=== PATIENT | female | born 1995 | race Caucasian/White ===

== ENCOUNTER 2018-07-03 19:20 | Emergency (ER) | payer OTHER ==
--- NOTE | 2018-07-03 20:49 | ER Document Report ---
ED Medical Screen (RME) - General TRAVEL OUTSIDE OF THE [place] IN LAST 30 DAYS: No <JOVANI CANELA - Last Filed: 07/03/18 20:47> <ARSENIO HUTCHISON - Last Filed: 07/04/18 00:03> - General Chief Complaint: Abdominal Pain Stated Complaint: ABDOMINAL PAIN Time Seen by Provider: 07/03/18 20:43 Notes: , ~16 weeks IUP per ultrasound per patient presents with multiple complaints including a month and a half of nonbloody diarrhea approximately 6 times a day. She states she has not taken anything for this. She also complains of diffuse of abdominal pain. No recent travel or camping. She also has been having a headache for the last 2 days denies any recent traumas or falls. Has been nauseous but no vomiting. I have greeted and performed a rapid initial assessment of this patient. A comprehensive ED assessment and evaluation of the patient, analysis of test results and completion of the medical decision making process will be conducted by additional ED providers. PHYSICAL EXAMINATION: GENERAL: Well-appearing, well-nourished and in no acute distress. HEAD: Atraumatic, normocephalic. EYES: Pupils equal round extraocular movements intact, conjunctiva are normal. ENT: Nares patent NECK: Normal range of motion LUNGS: No respiratory distress Musculoskeletal: Normal range of motion NEUROLOGICAL: Normal speech, normal gait. PSYCH: Normal mood, normal affect. SKIN: Warm, Dry, normal turgor, no rashes or lesions noted. (JOVANI CANELA) - Vital signs Vitals: Temp Pulse Resp BP Pulse Ox 98.3 F 84 17 117/64 98 07/03/18 19:31 07/03/18 19:31 07/03/18 19:31 07/03/18 19:31 07/03/18 19:31 Course - Laboratory Result Diagrams: 07/03/18 21:00 07/03/18 21:00 <ARSENIO HUTCHISON - Last Filed: 07/04/18 00:03> - Vital Signs Vital signs: Temp Pulse Resp BP Pulse Ox 98.3 F 84 17 117/64 98 07/03/18 19:31 07/03/18 19:31 07/03/18 19:31 07/03/18 19:31 07/03/18 19:31 - Laboratory Laboratory results interpreted by me: 07/03/18 07/03/18 21:00 21:00 Sodium 136.4 L Carbon Dioxide 21 L Creatinine 0.46 L Urine Ketones TRACE H
[2018-07-03] MEDS ORDERED: PROMETHAZINE HCL 25 MG TABLET PO ONE (20:50)
[2018-07-03 21:09] LABS: ABSOLUTE EOSINOPHILS # (AUTO) 0.1 10^3/uL (0.0-0.6); ABSOLUTE LYMPHOCYTES (AUTO) 1.9 10^3/uL (0.5-4.7); ABSOLUTE MONOCYTES (AUTO) 0.5 10^3/uL (0.1-1.4); ABSOLUTE NEUT (AUTO) 6.5 10^3/uL (1.7-8.2); BASOPHILS % (AUTO) 0.2 % (0-2); EOSINOPHILS % (AUTO) 1.3 % (0-6); HEMATOCRIT 38.8 % (36.0-47.0); HEMOGLOBIN 13.6 g/dL (12.0-15.5); LYMPHOCYTES % (AUTO) 20.7 % (13-45); MEAN CORPUSCULAR HEMOGLOBIN 32.3 pg (27.0-33.4); MEAN CORPUSCULAR HGB CONC 35.1 g/dL (32.0-36.0); MEAN CORPUSCULAR VOLUME 92 fl (80-97); MONOCYTES % (AUTO) 5.8 % (3-13); PLATELET COUNT 230 10^3/uL (150-450); RED BLOOD COUNT 4.22 10^6/uL (3.72-5.28); RED CELL DISTRIBUTION WIDTH 12.6 % (11.5-14.0); TOTAL CELLS COUNTED % (AUTO) 100 %
[2018-07-03 21:13] LABS: APPEARANCE,URINE SLIGHTLY-CLOUDY; BILIRUBIN,URINE NEGATIVE (NEGATIVE); COLOR,URINE YELLOW; GLUCOSE, URINE NEGATIVE (NEGATIVE); KETONES,URINE TRACE mg/dL (NEGATIVE); LEUKOCYTE ESTERASE,URINE NEGATIVE (NEGATIVE); NITRITE,URINE NEGATIVE (NEGATIVE); PROTEIN,URINE NEGATIVE (NEGATIVE); URINE SPECIFIC GRAVITY 1.025; UROBILINOGEN,URINE NEGATIVE mg/dL (<2.0)
[2018-07-03 21:23] LABS: ALANINE AMINOTRANSFERASE 24 U/L (9-52); ALBUMIN 4.1 g/dL (3.5-5.0); ALKALINE PHOSPHATASE 44 U/L (38-126); ANION GAP 12 (5-19); ASPARTATE AMINO TRANSFERASE 17 U/L (14-36); BILIRUBIN,DIRECT 0.2 mg/dL (0.0-0.4); BILIRUBIN,TOTAL 0.3 mg/dL (0.2-1.3); BLOOD UREA NITROGEN 9 mg/dL (7-20); CALCIUM 9.1 mg/dL (8.4-10.2); CARBON DIOXIDE 21 mmol/L (22-30); CHLORIDE 103 mmol/L (98-107); GLUCOSE 83 mg/dL (75-110); SODIUM 136.4 mmol/L (137-145); TOTAL PROTEIN 7.6 g/dL (6.3-8.2)
[2018-07-03] MEDS ORDERED: DIPHENHYDRAMINE HCL 50 MG/ML VIAL IV ONE (21:47)
[2018-07-03] MEDS ORDERED: DEXTROSE 5%-LACTATED RINGERS 1,000 ML IV ONE (21:47)
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
[2018-07-04 00:55] VITALS: BP 103/61
== END 2018-07-04 00:55 | disposition home or self-care (01) ==
LOC: ER 19:20
DX: O26.892 Other specified pregnancy related conditions, second trimester (principal); R19.7 Diarrhea, unspecified; R11.0 Nausea; R10.84 Generalized abdominal pain; R42 Dizziness and giddiness; O99.352 Diseases of the nervous system complicating pregnancy, second trimester; G43.909 Migraine, unspecified, not intractable, without status migrainosus; Z3A.16 16 weeks gestation of pregnancy; Z79.899 Other long term (current) drug therapy; Z87.442 Personal history of urinary calculi
CPT/HCPCS: 99284; 96361; 96374; 36415; 83735; 85025; 80053; 81001; J1200

== ENCOUNTER 2018-11-20 11:30 | Outpatient (CLI) | payer OTHER ==
[2018-11-20] MEDS ORDERED: RINGERS SOLUTION,LACTATED 300 ML IV ONE (12:02)
[2018-11-20] MEDS ORDERED: RINGERS SOLUTION,LACTATED 1,000 ML IV PRN (12:02)
[2018-11-20 12:26] LABS: ABSOLUTE EOSINOPHILS # (AUTO) 0.1 10^3/uL (0.0-0.6); ABSOLUTE LYMPHOCYTES (AUTO) 1.5 10^3/uL (0.5-4.7); ABSOLUTE MONOCYTES (AUTO) 0.9 10^3/uL (0.1-1.4); ABSOLUTE NEUT (AUTO) 7.8 10^3/uL (1.7-8.2); BASOPHILS % (AUTO) 0.2 % (0-2); EOSINOPHILS % (AUTO) 1.1 % (0-6); HEMATOCRIT 29.6 % (36.0-47.0); HEMOGLOBIN 10.1 g/dL (12.0-15.5); LYMPHOCYTES % (AUTO) 14.5 % (13-45); MEAN CORPUSCULAR HEMOGLOBIN 30.6 pg (27.0-33.4); MEAN CORPUSCULAR HGB CONC 34.1 g/dL (32.0-36.0); MEAN CORPUSCULAR VOLUME 90 fl (80-97); PLATELET COUNT 245 10^3/uL (150-450); RED CELL DISTRIBUTION WIDTH 12.8 % (11.5-14.0); SEGMENTED NEUTROPHILS % (AUTO) 75.2 % (42-78); TOTAL CELLS COUNTED % (AUTO) 100 %; WHITE BLOOD COUNT 10.4 10^3/uL (4.0-10.5)
[2018-11-20 12:43] LABS: AMORPHOUS SEDIMENT,URINE 1+ /HPF; APPEARANCE,URINE CLOUDY; BILIRUBIN,URINE NEGATIVE (NEGATIVE); COLOR,URINE YELLOW; GLUCOSE, URINE 50 mg/dL (NEGATIVE); KETONES,URINE NEGATIVE (NEGATIVE); LEUKOCYTE ESTERASE,URINE NEGATIVE (NEGATIVE); NITRITE,URINE NEGATIVE (NEGATIVE); PROTEIN,URINE NEGATIVE (NEGATIVE); URINE SPECIFIC GRAVITY 1.015; UROBILINOGEN,URINE NEGATIVE mg/dL (<2.0)
[2018-11-20 12:46] LABS: URINE AMPHETAMINES SCREEN NEGATIVE; URINE BARBITURATES SCREEN NEGATIVE; URINE BENZODIAZEPINES SCREEN NEGATIVE; URINE COCAINE SCREEN NEGATIVE; URINE MARIJUANA (THC) SCREEN NEGATIVE; URINE METHADONE SCREEN NEGATIVE; URINE PHENCYCLIDINE SCREEN NEGATIVE
[2018-11-20 12:51] LABS: ALANINE AMINOTRANSFERASE 15 U/L (9-52); ALBUMIN 3.2 g/dL (3.5-5.0); ALKALINE PHOSPHATASE 118 U/L (38-126); ANION GAP 10 (5-19); ASPARTATE AMINO TRANSFERASE 12 U/L (14-36); BILIRUBIN,DIRECT 0.2 mg/dL (0.0-0.4); BILIRUBIN,TOTAL 0.2 mg/dL (0.2-1.3); BLOOD UREA NITROGEN 7 mg/dL (7-20); CALCIUM 8.9 mg/dL (8.4-10.2); CARBON DIOXIDE 21 mmol/L (22-30); CHLORIDE 106 mmol/L (98-107); GLUCOSE 124 mg/dL (75-110); POTASSIUM 4.2 mmol/L (3.6-5.0); SODIUM 137.1 mmol/L (137-145); TOTAL PROTEIN 5.9 g/dL (6.3-8.2); URIC ACID 3.7 mg/dL (2.5-6.2)
[2018-11-20 13:44] LABS: UR PRO/CREAT RATIO RESULT 0.6 mg/mg (0.0-0.2); URINE CREATININE 70.4 mg/dL (16-327); URINE PROTEIN 44.4 mg/dL (<12)
--- NOTE | 2018-11-20 14:25 | RADIOLOGY REPORT (SQ) ---
EXAM DESCRIPTION: U/S PROFILE W/O STRESS COMPLETED DATE/TIME: 11/20/2018 2:15 pm REASON FOR STUDY: non reactive nst COMPARISON: None. TECHNIQUE: Limited ding-scale realtime and static images of the fetus to measure specified parameter s. LIMITATIONS: None. FINDINGS: HEART RATE: 152 beats per minute. ANAYELI: 8.1 cm. BREATHING MOVEMENT: 2 points. MOVEMENT: 2 points. POSTURE AND TONE: 2 points. QUALITATIVE ANAYELI: 2 points. OTHER: No other significant finding. IMPRESSION: BIOPHYSICAL PROFILE: 05/16. Trimester of : Third - 28 weeks to delivery COMMENT: BREATHING MOVEMENTS: 2 POINTS: PRESENT 0 POINTS: ABSENT MOTION: 2 POINTS: PRESENT 0 POINTS: ABSENT TONE: 2 POINTS: PRESENT 0 POINTS: ABSENT AMNIOTIC FLUID VOLUME: 2 POINTS: LARGEST POCKET GREATER THAN 2 CM DEPTH. 0 POINTS: NO POCKET OF 2 CM. TECHNICAL DOCUMENTATION: JOB ID: [id number] [employer]- All Rights Reserved Reading location - IP/workstation name: [email or web address]
--- NOTE | 2018-11-20 14:57 | Non Stress Test Report ---
Non Stress Test Datetime Report Generated by CPN: 11/20/2018 14:56 DEMOGRAPHIC EGA NST: 36.3 INDICATION Indication for Study: Other Indication for Study (NST) Other: LABOR CHECK MONITORING Monitor Explained: Monitor Explained; Test Explained; Patient Verbalized Understanding Time on Monitor: 11/20/2018 11:41 Time off Monitor: 11/20/2018 13:45 NST Duration: 124 NST INTERVENTIONS NST Interventions: PO Hydration; Reposition Patient Physician Notified NST: J ENRIQUEZ, CNM REVIEWED STRIP BABY A: [id number] BABY A Movement : Present Contraction Frequency : 4 FHR Baseline : 145 Accelerations : 15X15 Decelerations : None Variability : Moderate 6-25bpm NST Review: Meets Criteria for Reactive NST NST Review and Verified By : Bhumika Camp RNC NST Results: Reactive NST COMMENTS NST Comments: BPP- 10/10 NST REPORT Report Trigger: Send Report
== END 2018-11-20 14:41 | disposition home or self-care (01) ==
LOC: LC 11:30
PROVIDERS: ATTEND Obstetrics & Gynecology
PROC: 4A1HXCZ Monitoring of Products of Conception, Cardiac Rate, External Approach (ICD-10-PCS; principal; 2018-11-20)
DX: O47.03 False labor before 37 completed weeks of gestation, third trimester (principal); Z3A.36 36 weeks gestation of pregnancy
CPT/HCPCS: 36415; 59025; 76819; 80053; 80307; 81001; 82570; 83615; 84156; 84550; 85025

== ENCOUNTER 2019-01-21 17:53 | Emergency (ER) | payer OTHER ==
[2019-01-21] MEDS ORDERED: KETOROLAC TROMETHAMINE INJ/PF 30 MG/1 ML SDV IV ONE (19:03)
--- NOTE | 2019-01-21 19:07 | ER Document Report ---
ED Medical Screen (RME) - General Chief Complaint: Abdominal Pain Stated Complaint: ABDOMINAL PAIN Time Seen by Provider: 01/21/19 18:53 Mode of Arrival: Ambulatory Information source: Patient TRAVEL OUTSIDE OF THE [place] IN LAST 30 DAYS: No - HPI Patient complains to provider of: brandto pain Notes: 01/21/19 19:04 Patient is here with complaints of lower abdominal pain. Pain started yesterday. Pain is around her umbilical area. She states she is also had some nausea, vomiting, diarrhea. She reports having a fever with temperature as high as 103. She does complain of some vaginal discharge/bleeding, she states that she had a Mirena placed last week. She had her gallbladder removed in the past. She denies any dysuria. No chest pain or shortness of breath. Exam Nontoxic appearing, no distress. Tenderness to palpation in the mid low abdomen with some mild voluntary guarding on limited triage exam. No CVA tenderness. Lungs are clear. Plan CBC, CMP, lipase, urine, urine , saline lock, Toradol, CT of the abdomen and pelvis with IV contrast. An initial examination was made on the patient as part of the triage process, and it was determined a more comprehensive evaluation was necessary. Initial labs were ordered and patient was transferred to another provider in the ED who assumed care and finished evaluation and plan. - Related Data Allergies/Adverse Reactions: No Known Drug Allergies Allergy (Verified 01/21/19 17:55) Past Medical History - Social History Frequency of alcohol use: None Drug Abuse: None Renal/ Medical History: Reports: Hx Kidney Stones - left. Denies: Hx Peritoneal Dialysis Psychiatric Medical History: Reports: Hx Depression Past Surgical History: Reports: Hx Cholecystectomy, Hx Kidney (Renal Surgery) - 2x ureteral stents after stone basket retrieval Physical Exam - Vital signs Vitals: Temp Pulse Resp BP Pulse Ox 98.3 F 71 15 115/71 98 01/21/19 18:13 01/21/19 18:13 01/21/19 18:13 01/21/19 18:13 01/21/19 18:13 Course - Vital Signs Vital signs: Temp Pulse Resp BP Pulse Ox 98.3 F 71 15 115/71 98 01/21/19 18:13 01/21/19 18:13 01/21/19 18:13 01/21/19 18:13 01/21/19 18:13
[2019-01-21 19:28] LABS: ABSOLUTE EOSINOPHILS # (AUTO) 0.1 10^3/uL (0.0-0.6); ABSOLUTE LYMPHOCYTES (AUTO) 1.8 10^3/uL (0.5-4.7); ABSOLUTE MONOCYTES (AUTO) 0.3 10^3/uL (0.1-1.4); ABSOLUTE NEUT (AUTO) 1.7 10^3/uL (1.7-8.2); BASOPHILS % (AUTO) 0.6 % (0-2); EOSINOPHILS % (AUTO) 2.9 % (0-6); HEMATOCRIT 35.4 % (36.0-47.0); LYMPHOCYTES % (AUTO) 44.8 % (13-45); MEAN CORPUSCULAR HEMOGLOBIN 29.9 pg (27.0-33.4); MEAN CORPUSCULAR HGB CONC 33.9 g/dL (32.0-36.0); MEAN CORPUSCULAR VOLUME 88 fl (80-97); MONOCYTES % (AUTO) 8.7 % (3-13); PLATELET COUNT 254 10^3/uL (150-450); RED BLOOD COUNT 4.01 10^6/uL (3.72-5.28); RED CELL DISTRIBUTION WIDTH 14.5 % (11.5-14.0); TOTAL CELLS COUNTED % (AUTO) 100 %
[2019-01-21 19:32] LABS: APPEARANCE,URINE CLEAR; BILIRUBIN,URINE NEGATIVE (NEGATIVE); COLOR,URINE YELLOW; GLUCOSE, URINE NEGATIVE (NEGATIVE); KETONES,URINE NEGATIVE (NEGATIVE); LEUKOCYTE ESTERASE,URINE NEGATIVE (NEGATIVE); NITRITE,URINE NEGATIVE (NEGATIVE); PROTEIN,URINE NEGATIVE (NEGATIVE); URINE SPECIFIC GRAVITY 1.016; UROBILINOGEN,URINE NEGATIVE mg/dL (<2.0)
[2019-01-21 19:45] LABS: ALANINE AMINOTRANSFERASE 36 U/L (9-52); ALBUMIN 4.1 g/dL (3.5-5.0); ALKALINE PHOSPHATASE 60 U/L (38-126); ANION GAP 6 (5-19); ASPARTATE AMINO TRANSFERASE 20 U/L (14-36); BILIRUBIN,DIRECT 0.2 mg/dL (0.0-0.4); BILIRUBIN,TOTAL 0.4 mg/dL (0.2-1.3); BLOOD UREA NITROGEN 10 mg/dL (7-20); CALCIUM 9.7 mg/dL (8.4-10.2); CARBON DIOXIDE 27 mmol/L (22-30); CHLORIDE 107 mmol/L (98-107); GLUCOSE 84 mg/dL (75-110); LIPASE 157.1 U/L (23-300); POTASSIUM 4.4 mmol/L (3.6-5.0); SODIUM 139.9 mmol/L (137-145); TOTAL PROTEIN 7.2 g/dL (6.3-8.2)
[2019-01-21] MEDS ORDERED: HYDROMORPHONE HCL INJ/PF 2 MG/ML AMPULE IV ONE (21:04)
[2019-01-21] MEDS ORDERED: NORMAL SALINE 1000 ML 1,000 ML IV ONE (21:04)
[2019-01-21] MEDS ORDERED: METOCLOPRAMIDE HCL ORAL SOLN 10 MG/10 ML UDCUP PO ONE (21:04)
--- NOTE | 2019-01-21 21:07 | ER Document Report ---
ED General - General Chief Complaint: Abdominal Pain Stated Complaint: ABDOMINAL PAIN Time Seen by Provider: 01/21/19 18:53 Mode of Arrival: Ambulatory TRAVEL OUTSIDE OF THE [place] IN LAST 30 DAYS: No - HPI Patient complains to provider of: Periumbilical abdominal pain, fever, nausea and vomiting Onset: Yesterday Onset/Duration: Gradual, Persistent Quality of pain: Sharp Severity: Severe Pain Level: 4 Associated symptoms: Chills, Fever Exacerbated by: Movement, Other - Outpatient Relieved by: Denies Similar symptoms previously: No Recently seen / treated by doctor: No Notes: 23-year-old female coming in today with periumbilical abdominal pain and fever and nausea and vomiting. Symptoms started yesterday. Getting worse today. 2 episodes of emesis today. Denies urinary symptoms. Denies . Denies previous abdominal pathology. Denies previous surgeries. - Related Data Allergies/Adverse Reactions: No Known Drug Allergies Allergy (Verified 01/21/19 17:55) Past Medical History - General Information source: Patient - Social History Smoking Status: Never Smoker Frequency of alcohol use: None Drug Abuse: None Family History: Reviewed & Not Pertinent Patient has suicidal ideation: No Patient has homicidal ideation: No Renal/ Medical History: Reports: Hx Kidney Stones - left. Denies: Hx Peritoneal Dialysis Psychiatric Medical History: Reports: Hx Depression Past Surgical History: Reports: Hx Cholecystectomy, Hx Kidney (Renal Surgery) - 2x ureteral stents after stone basket retrieval Review of Systems - Review of Systems Notes: Constitutional: Positive for fever and chills EENT: No eye redness. No eye pain. No ear pain. No sore throat. Cardiovascular: No chest pain. No palpitations. Respiratory: No cough. No shortness of breath. No respiratory distress. Gastrointestinal: Positive for nausea and vomiting. Negative for diarrhea Genitourinary: Atraumatic. No lesions. No pain. No discharge. Musculoskeletal: Atraumatic. No swelling. No deformities. Skin: No rash or lesions. Lymphatic: No swollen lymph nodes. Neurologic: No headache. No syncope. Psychiatric: No suicidal or homicidal ideation. Physical Exam - Vital signs Vitals: Temp Pulse Resp BP Pulse Ox 98.3 F 71 15 115/71 98 01/21/19 18:13 01/21/19 18:13 01/21/19 18:13 01/21/19 18:13 01/21/19 18:13 - Notes Notes: General: Well-developed, well-nourished. In no acute distress. Non-toxic appearing. Patient appears uncomfortable Cardiac: Well-perfused. Regular rate and rhythm. No murmurs, rubs, or gallops. Pulmonary: No respiratory distress. No cyanosis. Bilateral lung fiels are clear to auscultation. Abdominal: Non-distended. Non-rigid. No guarding or rebound. Exquisite tenderness in the periumbilical region to palpation. No guarding or rebound. Normal bowel sounds in all 4 quadrants HEENT: Head is atraumatic. Conjunctivae not reddened. No tearing. PERRL. EOMI. Orbits atraumatic. No periorbital swelling or erythema. Oropharynx is without erythema, swelling, or exudates. Neck: Supple. No adenopathy. No meningismus. Dermatologic: Warm with good turgor. No rash. Atraumatic. Chest: Atraumatic. No chest wall tenderness to palpation. Musculoskeletal: Moves all extremities well. No range of motion deficits. no muscular or joint tenderness. No paraspinal muscle tenderness. no midline spinal tenderness or step-off. Genitourinary: Examination deferred Neurologic: No gross neurologic deficits. Psychiatric: Normal mood. Course - Re-evaluation Re-evalutation: 01/21/19 21:[address] scan. I would benefit from some more nausea and pain medications as well as fluids. CT results pending. 01/21/19 21:19 CT scan negative. There is some stool throughout the bowel. Labs look good. No appendicitis. Will discharge her home with nausea and pain medication. - Vital Signs Vital signs: Temp Pulse Resp BP Pulse Ox 98.3 F 71 15 115/71 98 01/21/19 18:13 01/21/19 18:13 01/21/19 18:13 01/21/19 18:13 01/21/19 18:13 - Laboratory Result Diagrams: 01/21/19 19:04 01/21/19 19:04 Laboratory results interpreted by me: 01/21/19 01/21/19 19:04 19:04 Hct 35.4 L RDW 14.5 H Urine Blood MODERATE H Discharge - Discharge Clinical Impression: Abdominal pain Qualifiers: Abdominal location: periumbilical Qualified Code(s): R10.33 - Periumbilical pain Retained feces Qualifiers: Constipation type: unspecified constipation type Qualified Code(s): K59.00 - Constipation, unspecified Condition: Good Disposition: HOME, SELF-CARE Instructions: Abdominal Pain ([facility]), Antinausea Medication ([facility]) Prescriptions: Ondansetron [Zofran Odt 4 mg Tablet] 1 tab PO Q6HP PRN #10 tab.rapdis PRN Reason: For Nausea/Vomiting Hydrocodone/Acetaminophen [[place] 5-325 mg Tablet] 1 tab PO Q6H #10 tablet Referrals: [facility] [Provider Group] - Follow up as needed
--- NOTE | 2019-01-21 21:09 | RADIOLOGY REPORT (SQ) ---
EXAM DESCRIPTION: CT ABDOMEN PELVIS WITH IV CONTRAST COMPLETED DATE/TME: 01/21/2019 19:03 CLINICAL HISTORY: 23 years, Female, lower abdo pain, fever This exam was performed according to our departmental dose-optimization program which includes automated exposure control, adjustment of the mA and/or kVp according to patient size and/or use of iterative reconstruction technique where applicable. FINDINGS: Visualized lung bases are within normal limits. Liver, spleen, pancreas, adrenal glands and kidneys are within normal limits. No hydronephrosis or biliary dilatation. Status post cholecystectomy. No dilated loops of bowel to suggest obstruction. Moderate amount stool in the colon. The appendix is normal. No free fluid or free air. Bladder is unremarkable. IUD in place. No abdominal or pelvic adenopathy. Abdominal aorta is within normal limits. IMPRESSION: No acute disease.
[2019-01-21] MEDS ORDERED: ONDANSETRON ODT 4 MG TAB (6 TAB/ER DISP) PO PRN (21:19)
[2019-01-21] MEDS ORDERED: HYDROCODONE/ACETAMINOPHEN 5-325 MG (6 TAB/ER DISP) PO PRN (21:19)
[2019-01-21 22:01] VITALS: BP 119/74
== END 2019-01-21 22:41 | disposition home or self-care (01) ==
LOC: ER 17:53
DX: R10.33 Periumbilical pain (principal); K59.00 Constipation, unspecified; Z87.442 Personal history of urinary calculi; Z90.49 Acquired absence of other specified parts of digestive tract
CPT/HCPCS: 96375; 99284; 96361; 96374; 36415; 83690; 85025; 81025; 80053; 81001; 74177; J1885; J1170; J7030

== ENCOUNTER 2019-02-16 20:25 | Emergency (ER) | payer OTHER ==
[2019-02-16] MEDS ORDERED: MORPHINE SULFATE 10 MG/ML INJ IV ONE (20:38)
[2019-02-16] MEDS ORDERED: ONDANSETRON HCL INJ/PF 4 MG/2 ML SDV IV ONE (20:38)
--- NOTE | 2019-02-16 20:40 | ER Document Report ---
ED Medical Screen (RME) - General Chief Complaint: Post Surgical Bleeding Stated Complaint: POST OP PROBLEM Time Seen by Provider: 02/16/19 20:33 Mode of Arrival: Wheelchair Information source: Patient Notes: Patient is a 23-year-old female who presents to the emergency department with complaints of umbilical abdominal pain. Patient reports she had an umbilical hernia repair done 3 days ago at the [facility] by a Dr. Diamond. Patient reports pain has increased steadily since the surgery. She states the pain feels like a sharp stabbing and twisting pain. Patient reports severe nausea without vomiting. Patient states she has had a few episodes of diarrhea. Patient reports intermittent hot and cold chills but states she has not taken her temperature so she is not sure if she has had a fever. Exam: Umbilical laparoscopic site appears intact, there is a tiny amount of dried blood on the left side of the lap site. No obvious signs of infection. I have greeted and performed a rapid initial assessment of this patient. A comprehensive ED assessment and evaluation of the patient, analysis of test results and completion of the medical decision making process will be conducted by additional ED providers. Dictation of this chart was performed using voice recognition software; therefore, there may be some unintended grammatical errors. TRAVEL OUTSIDE OF THE [place] IN LAST 30 DAYS: No - Related Data Allergies/Adverse Reactions: No Known Drug Allergies Allergy (Verified 01/21/19 17:55) Past Medical History Renal/ Medical History: Reports: Hx Kidney Stones - left. Denies: Hx Peritoneal Dialysis Psychiatric Medical History: Reports: Hx Depression Past Surgical History: Reports: Hx Cholecystectomy, Hx Kidney (Renal Surgery) - 2x ureteral stents after stone basket retrieval Physical Exam - Vital signs Vitals: Temp Pulse Resp BP Pulse Ox 98.2 F 101 H 18 116/75 97 02/16/19 20:36 02/16/19 20:36 02/16/19 20:36 02/16/19 20:36 02/16/19 20:36 Course - Vital Signs Vital signs: Temp Pulse Resp BP Pulse Ox 98.2 F 101 H 18 116/75 97 02/16/19 20:36 02/16/19 20:36 02/16/19 20:36 02/16/19 20:36 02/16/19 20:36
[2019-02-16 21:00] LABS: ABSOLUTE EOSINOPHILS # (AUTO) 0.2 10^3/uL (0.0-0.6); ABSOLUTE LYMPHOCYTES (AUTO) 1.9 10^3/uL (0.5-4.7); ABSOLUTE MONOCYTES (AUTO) 0.5 10^3/uL (0.1-1.4); ABSOLUTE NEUT (AUTO) 2.9 10^3/uL (1.7-8.2); BASOPHILS % (AUTO) 0.6 % (0-2); EOSINOPHILS % (AUTO) 3.8 % (0-6); HEMATOCRIT 38.8 % (36.0-47.0); HEMOGLOBIN 12.8 g/dL (12.0-15.5); LYMPHOCYTES % (AUTO) 34.2 % (13-45); MEAN CORPUSCULAR HEMOGLOBIN 29.4 pg (27.0-33.4); MEAN CORPUSCULAR HGB CONC 33.1 g/dL (32.0-36.0); MEAN CORPUSCULAR VOLUME 89 fl (80-97); MONOCYTES % (AUTO) 8.5 % (3-13); PLATELET COUNT 248 10^3/uL (150-450); RED BLOOD COUNT 4.37 10^6/uL (3.72-5.28); RED CELL DISTRIBUTION WIDTH 14.7 % (11.5-14.0); SEGMENTED NEUTROPHILS % (AUTO) 52.9 % (42-78); TOTAL CELLS COUNTED % (AUTO) 100 %; WHITE BLOOD COUNT 5.6 10^3/uL (4.0-10.5)
[2019-02-16 21:16] LABS: ALANINE AMINOTRANSFERASE 29 U/L (9-52); ALBUMIN 4.3 g/dL (3.5-5.0); ALKALINE PHOSPHATASE 68 U/L (38-126); ANION GAP 11 (5-19); ASPARTATE AMINO TRANSFERASE 16 U/L (14-36); BILIRUBIN,DIRECT 0.2 mg/dL (0.0-0.4); BILIRUBIN,TOTAL 0.2 mg/dL (0.2-1.3); BLOOD UREA NITROGEN 15 mg/dL (7-20); CALCIUM 9.5 mg/dL (8.4-10.2); CARBON DIOXIDE 30 mmol/L (22-30); CHLORIDE 103 mmol/L (98-107); GLUCOSE 93 mg/dL (75-110); TOTAL PROTEIN 7.4 g/dL (6.3-8.2)
--- NOTE | 2019-02-16 21:22 | ER Document Report ---
ED General - General Chief Complaint: Post Surgical Bleeding Stated Complaint: POST OP PROBLEM Time Seen by Provider: 02/16/19 20:33 Mode of Arrival: Wheelchair TRAVEL OUTSIDE OF THE [place] IN LAST 30 DAYS: No - HPI Notes: Patient is a 23-year-old female who presents to the emergency department today for abdominal pain. Patient states that she had an open umbilical hernia repair this past Monday at [facility]. Patient states that they prescribed her 5 mg Moosic as well as 5 mg of Valium which she has been taking as prescribed but it is not helping. Patient stated "I did not realize no one told me it was going to hurt this bad." Patient reports that the pain is located around the surgical site is sharp, stabbing, twisting in nature. Patient does report nausea without vomiting. Patient states he did not prescribe her any anti- nausea medication. Patient states that she felt like she has had chills at home but has not checked her temperature. Patient states her last bowel movement was today and normal. She states that the surgical site has used a tiny amount of red blood. Denies pus or foul-smelling drainage. - Related Data Allergies/Adverse Reactions: No Known Drug Allergies Allergy (Verified 02/16/19 22:11) Past Medical History - General Information source: Patient - Social History Smoking Status: Never Smoker Frequency of alcohol use: None Drug Abuse: None Family History: Reviewed & Not Pertinent Patient has suicidal ideation: No Patient has homicidal ideation: No - Past Medical History Cardiac Medical History: Reports: None Pulmonary Medical History: Reports: None EENT Medical History: Reports: None Neurological Medical History: Reports: None Endocrine Medical History: Reports: None Renal/ Medical History: Reports: Hx Kidney Stones - left. Denies: Hx Peritoneal Dialysis Malignancy Medical History: Reports: None GI Medical History: Reports: None Musculoskeletal Medical History: Reports None Skin Medical History: Reports None Psychiatric Medical History: Reports: Hx Depression Traumatic Medical History: Reports: None Infectious Medical History: Reports: None Past Surgical History: Reports: Hx Cholecystectomy, Hx Kidney (Renal Surgery) - 2x ureteral stents after stone basket retrieval, Hx Umbilical Hernia Review of Systems - Review of Systems Constitutional: See HPI EENT: No symptoms reported Cardiovascular: No symptoms reported Respiratory: No symptoms reported Gastrointestinal: See HPI Genitourinary: No symptoms reported Female Genitourinary: No symptoms reported Musculoskeletal: No symptoms reported Skin: No symptoms reported Hematologic/Lymphatic: No symptoms reported Neurological/Psychological: No symptoms reported Physical Exam - Vital signs Vitals: Temp Pulse Resp BP Pulse Ox 98.2 F 101 H 18 116/75 97 02/16/19 20:36 02/16/19 20:36 02/16/19 20:36 02/16/19 20:36 02/16/19 20:36 - Notes Notes: GENERAL: Well-appearing, well-nourished and in no acute distress. HEAD: Atraumatic, normocephalic. EYES: Pupils equal round and reactive to light, extraocular movements intact, sclera anicteric, conjunctiva are normal. ENT: Nares patent, oropharynx clear without exudates. Moist mucous membranes. NECK: Normal range of motion, supple without lymphadenopathy or JVD. LUNGS: Breath sounds clear to auscultation bilaterally and equal. No wheezes rales or rhonchi. HEART: Regular rate and rhythm without murmurs, rubs or gallops. ABDOMEN: Round, soft, minimally tender around umbilical surgical site, healing hernia incision noted below the umbilicus with small amount of dried red blood, no foul smelling drainage or discharge, incision intact with what appears to be surgical glue, no redness, multiple striae noted across entire lower abdomen, normoactive bowel sounds. No guarding, no rebound. No masses appreciated. EXTREMITIES: Normal range of motion, no pitting or edema. No clubbing or cyanosis. NEUROLOGICAL: Cranial nerves II through XII grossly intact. Normal speech, normal gait. PSYCH: Normal mood, normal affect. SKIN: Warm, Dry, normal turgor, no rashes or lesions noted. Course - Re-evaluation Re-evalutation: 02/16/19 21:20 Upon initial evaluation comfortably on stretcher. Patient had received IV morphine for her abdominal discomfort which she rates as a 2 out of 5 at this time. Will obtain basic lab work and call her surgeon at [facility] when labs have her resulted. Patient's abdominal exam is somewhat benign with mild tenderness around the surgical site as expected. Will continue to monitor. 02/16/19 21:40 Spoke with on-call general surgeon at [facility] Dr. Dave Curran regarding patient's ER visit and continued abdominal pain. Discussed benign lab results, normal vital signs and unremarkable abdominal exam. At this time I do not believe a CT is needed. Dr. Dave Curran recommends stopping the prescription for Moosic and Valium. Prescribing the patient Oxycodone 5 mg every 6 hours and to use Ibuprofen in between. Dr. Curran states he will see Dr. Diamond tomorrow and will notify him that patient visited the emergency department at [facility] for uncontrolled pain so he can give the patient a follow up call. Discussed this plan with patient and who are in agreement at this time. - Vital Signs Vital signs: Temp Pulse Resp BP Pulse Ox 98.2 F 101 H 18 116/75 97 02/16/19 20:36 02/16/19 20:36 02/16/19 20:36 02/16/19 20:36 02/16/19 20:36 - Laboratory Result Diagrams: 02/16/19 20:46 02/16/19 20:46 Laboratory results interpreted by me: 02/16/19 20:46 RDW 14.7 H Discharge - Discharge Clinical Impression: Post-op pain, Nausea Condition: Stable Disposition: HOME, SELF-CARE Additional Instructions: Today you are seen in the emergency department for postop pain after the local hernia repair last week. I have spoke with Dr. Dave Curran at the [facility] who recommended you stop the Moosic and Valium prescription. His recommendations were to take Percocet every 6 hours as needed for pain and to alternate with ibuprofen. You state that you have ibuprofen at home. I will prescribe Zofran as needed for nausea. Follow-up with Dr. Diamond at your surgeon. Please use Colace to help prevent constipation with the narcotic pain medication. Increase your fluid intake. Please return to a emergency department if you have worsening abdominal pain that is not controlled with the Percocet, fever, uncontrollable vomiting, foul-smelling drainage from the surgical site, significant bleeding from the site, or any other concerning signs or symptoms. Prescriptions: Ondansetron [Zofran Odt 4 mg Tablet] 1 - 2 tab PO Q4H PRN #15 tab.rapdis PRN Reason: For Nausea/Vomiting Oxycodone HCl/Acetaminophen [Percocet 5-325 mg Tablet] 1 tab PO Q6 #10 tablet
[2019-02-16 22:04] VITALS: BP 99/60
[2019-02-16] MEDS ORDERED: OXYCODONE-ACETAMINOPHEN 5-325 MG TABLET PO ONE (22:09)
[2019-02-16] MEDS ORDERED: ONDANSETRON ODT 4 MG TAB (6 TAB/ER DISP) PO PRN (22:09)
== END 2019-02-16 22:23 | disposition home or self-care (01) ==
LOC: ER 20:25
DX: G89.18 Other acute postprocedural pain (principal); R11.0 Nausea; R10.9 Unspecified abdominal pain; Z98.890 Other specified postprocedural states; Z79.899 Other long term (current) drug therapy
CPT/HCPCS: 99283; 96374; 96375; 36415; 85025; 80053; J2270; J2405

== ENCOUNTER 2019-04-02 19:11 | Emergency (ER) | payer OTHER ==
[2019-04-02] MEDS ORDERED: ONDANSETRON HCL INJ/PF 4 MG/2 ML SDV IV ONE ×2 (19:48→22:38)
[2019-04-02] MEDS ORDERED: NORMAL SALINE 1000 ML 1,000 ML IV ONE (19:48)
--- NOTE | 2019-04-02 19:50 | ER Document Report ---
ED Medical Screen (RME) - General Chief Complaint: Epigastric Pain Stated Complaint: CHEST PAIN, BACK AND STOMACH PAIN Time Seen by Provider: 04/02/19 19:44 Mode of Arrival: Ambulatory Information source: Patient Notes: Patient presents with multiple complaints. Patient reports midsternal chest pain, back pain, epigastric and periumbilical abdominal pain. Patient reports nausea vomiting and diarrhea. Patient states she is vomited 3 times today and had diarrhea 3 times as well. Patient reports temperature of 100.24 days ago but no elevated temperature since then. Patient denies any urinary symptoms. hx: Kidney stones, ureteral stents, hernia repair, cholecystectomy I have greeted and performed a rapid initial assessment of this patient. A comprehensive ED assessment and evaluation of the patient, analysis of test results and completion of the medical decision making process will be conducted by additional ED providers. TRAVEL OUTSIDE OF THE [place] IN LAST 30 DAYS: No - Related Data Allergies/Adverse Reactions: No Known Drug Allergies Allergy (Verified 04/02/19 19:12) Past Medical History - Social History Chew tobacco use (# tins/day): No Frequency of alcohol use: None Drug Abuse: None Renal/ Medical History: Reports: Hx Kidney Stones - left. Denies: Hx Peritoneal Dialysis Psychiatric Medical History: Reports: Hx Depression Past Surgical History: Reports: Hx Cholecystectomy, Hx Kidney (Renal Surgery) - 2x ureteral stents after stone basket retrieval, Hx Umbilical Hernia Physical Exam - Vital signs Vitals: Temp Pulse Resp BP Pulse Ox 99.1 F 83 18 116/69 98 04/02/19 19:15 04/02/19 19:15 04/02/19 19:15 04/02/19 19:15 04/02/19 19:15 - Abdominal Tenderness: Tender - Epigastric, periumbilical Course - Vital Signs Vital signs: Temp Pulse Resp BP Pulse Ox 99.1 F 83 18 116/69 98 04/02/19 19:15 04/02/19 19:15 04/02/19 19:15 04/02/19 19:15 04/02/19 19:15
[2019-04-02 20:30] LABS: APPEARANCE,URINE SLIGHTLY-CLOUDY; BILIRUBIN,URINE NEGATIVE (NEGATIVE); COLOR,URINE YELLOW; GLUCOSE, URINE NEGATIVE (NEGATIVE); KETONES,URINE NEGATIVE (NEGATIVE); LEUKOCYTE ESTERASE,URINE SMALL (NEGATIVE); NITRITE,URINE NEGATIVE (NEGATIVE); PROTEIN,URINE NEGATIVE (NEGATIVE); URINE SPECIFIC GRAVITY 1.016; UROBILINOGEN,URINE NEGATIVE mg/dL (<2.0)
[2019-04-02 20:39] LABS: ABSOLUTE EOSINOPHILS # (AUTO) 0.1 10^3/uL (0.0-0.6); ABSOLUTE LYMPHOCYTES (AUTO) 1.6 10^3/uL (0.5-4.7); ABSOLUTE MONOCYTES (AUTO) 0.4 10^3/uL (0.1-1.4); ABSOLUTE NEUT (AUTO) 3.4 10^3/uL (1.7-8.2); BASOPHILS % (AUTO) 0.5 % (0-2); EOSINOPHILS % (AUTO) 1.5 % (0-6); HEMATOCRIT 37.1 % (36.0-47.0); HEMOGLOBIN 12.4 g/dL (12.0-15.5); LYMPHOCYTES % (AUTO) 28.4 % (13-45); MEAN CORPUSCULAR HEMOGLOBIN 29.6 pg (27.0-33.4); MEAN CORPUSCULAR HGB CONC 33.4 g/dL (32.0-36.0); MEAN CORPUSCULAR VOLUME 89 fl (80-97); PLATELET COUNT 239 10^3/uL (150-450); RED BLOOD COUNT 4.19 10^6/uL (3.72-5.28); RED CELL DISTRIBUTION WIDTH 13.2 % (11.5-14.0); SEGMENTED NEUTROPHILS % (AUTO) 61.6 % (42-78); TOTAL CELLS COUNTED % (AUTO) 100 %; WHITE BLOOD COUNT 5.5 10^3/uL (4.0-10.5)
--- NOTE | 2019-04-02 21:00 | RADIOLOGY REPORT (SQ) ---
EXAM DESCRIPTION: XR CHEST 2 VIEWS COMPLETED DATE/TME: 04/02/2019 19:48 CLINICAL HISTORY: 23 years Female cp COMPARISON: None. FINDINGS: The cardiomediastinal silhouette appears unremarkable. No consolidating infiltrates or pleural effusions. No pneumothorax. IMPRESSION: No acute abnormality is identified.
[2019-04-02 21:12] LABS: ALANINE AMINOTRANSFERASE 23 U/L (9-52); ALBUMIN 4.9 g/dL (3.5-5.0); ALKALINE PHOSPHATASE 60 U/L (38-126); ANION GAP 12 (5-19); ASPARTATE AMINO TRANSFERASE 21 U/L (14-36); BILIRUBIN,DIRECT 0.2 mg/dL (0.0-0.4); BILIRUBIN,TOTAL 0.3 mg/dL (0.2-1.3); BLOOD UREA NITROGEN 11 mg/dL (7-20); CALCIUM 9.7 mg/dL (8.4-10.2); CARBON DIOXIDE 28 mmol/L (22-30); CHLORIDE 101 mmol/L (98-107); GLUCOSE 83 mg/dL (75-110); LIPASE 208.8 U/L (23-300); POTASSIUM 4.3 mmol/L (3.6-5.0); SODIUM 140.9 mmol/L (137-145)
[2019-04-02] MEDS ORDERED: LIDOCAINE 2% VISCOUS SOLN 20 ML UDCUP PO ONE (22:38)
[2019-04-02] MEDS ORDERED: MAG HYDROX/AL HYDROX/SIMETH SUSP 30 ML UDCUP PO ONE (22:38)
[2019-04-02] MEDS ORDERED: NORMAL SALINE 500 ML IV ONE (22:38)
[2019-04-02] MEDS ORDERED: METOCLOPRAMIDE HCL ORAL SOLN 10 MG/10 ML UDCUP PO ONE (22:38)
--- NOTE | 2019-04-02 23:14 | EKG REPORT ---
SEVERITY:- NORMAL ECG - SINUS RHYTHM : Confirmed by: Colin Vargas 02-Apr-2019 23:13:37
--- NOTE | 2019-04-02 23:19 | ER Document Report ---
ED General - General Chief Complaint: Epigastric Pain Stated Complaint: CHEST PAIN, BACK AND STOMACH PAIN Time Seen by Provider: 04/02/19 19:44 Mode of Arrival: Ambulatory Notes: Patient is a pleasant 23 year old female who presents with complaint of several days of nausea vomiting, some loose stools, pain in the epigastric region going into the lower chest as well as into the back. She is only had previous cholecy stectomy. She denies any fevers. No blood in her emesis. No blood in her stool. No black or tarry stools. No other complaints at this time. TRAVEL OUTSIDE OF THE [place] IN LAST 30 DAYS: No - Related Data Allergies/Adverse Reactions: No Known Drug Allergies Allergy (Verified 04/02/19 19:12) Past Medical History - General Information source: Patient - Social History Smoking Status: Never Smoker Chew tobacco use (# tins/day): No Frequency of alcohol use: None Drug Abuse: None Family History: Reviewed & Not Pertinent Patient has suicidal ideation: No Patient has homicidal ideation: No Renal/ Medical History: Reports: Hx Kidney Stones - left. Denies: Hx Peritoneal Dialysis Psychiatric Medical History: Reports: Hx Depression Past Surgical History: Reports: Hx Cholecystectomy, Hx Kidney (Renal Surgery) - 2x ureteral stents after stone basket retrieval, Hx Umbilical Hernia Review of Systems - Review of Systems Notes: My Normal Review Basic REVIEW OF SYSTEMS: CONSTITUTIONAL : Denies fever, chills, or sweats. Denies recent illness. RESPIRATORY: Denies cough, cold, or chest congestion. Denies shortness of breath, difficulty breathing, or wheezing. GASTROINTESTINAL: Upper abdominal pain. Denies nausea, vomiting, or diarrhea. GENITOURINARY: Denies difficulty urinating, painful urination, burning, frequency, or blood in urine. FEMALE GENITOURINARY: Denies vaginal bleeding, abnormal or irregular periods. MUSCULOSKELETAL: Denies neck or back pain or joint pain or swelling. SKIN: Denies rash or skin lesions. NEUROLOGICAL: Denies altered mental status or loss of consciousness. ALL OTHER SYSTEMS REVIEWED AND NEGATIVE. Physical Exam - Vital signs Vitals: Temp Pulse Resp BP Pulse Ox 99.1 F 83 18 116/69 98 04/02/19 19:15 04/02/19 19:15 04/02/19 19:15 04/02/19 19:15 04/02/19 19:15 - Notes Notes: General Appearance: Well nourished, alert, cooperative, no acute distress, moderate obvious discomfort. Vitals: reviewed, See vital signs table. Head: no swelling or tenderness to the head Eyes: PERRL, EOMI, Conjuctiva clear Mouth: No decreasd moisture Lungs: No wheezing, No rales, No rhonci, No accessory muscle use, good air exchange bilaterally. Heart: Normal rate, Regular rythm, No murmur, no rub Abdomen: Normal BS, soft, No rigidity, upper abdominal tenderness to palpation. Pain is mostly in epigastric region. Some of the left upper quadrant as well., No guarding, no rebound, no abdominal masses, no organomegaly Extremities: strength 5/5 in all extremities, good pulses in all extremities, no swelling or tenderness in the extremities, no edema. Skin: warm, dry, appropriate color, no rash Neuro: speech clear, oriented x 3, normal affect, responds appropriately to questions. Course - Re-evaluation Re-evalutation: 04/02/19 23:56 Patient is currently feeling much improved. She looks well. She said GI cocktail relieved the pain in her chest and upper abdomen. I suspect parotid ga stritis and esophagitis from vomiting. She has had previous cholecystectomy and therefore work-up for gallbladder disease is not necessary. Laboratory evaluation is unremarkable. Abdominal exam is benign. I feel she safe to be discharged home. Encouraged her to have a very low threshold to return to the ER if she has intractable vomiting, worsening abdominal pain, fevers, or if she feels she is worsening in any way. Patient agrees with plan and will be discharged home. Dictation of this chart was performed using voice recognition software; therefore, there may be some unintended grammatical errors. - Vital Signs Vital signs: Temp Pulse Resp BP Pulse Ox 97.7 F 63 14 103/64 97 04/03/19 00:21 04/03/19 00:21 04/03/19 00:21 04/03/19 00:21 04/03/19 00:21 - Laboratory Result Diagrams: 04/02/19 19:57 04/02/19 19:57 Laboratory results interpreted by me: 04/02/19 19:57 Ur Leukocyte Esterase SMALL H - EKG Interpretation by Me Additional EKG results interpreted by me: 04/02/19 23:18 EKG is reviewed and interpreted by me. EKG shows sinus rhythm with a rate of [address] segment elevation or depression. No ischemic T wave inversions. OK interval, QRS duration, QT intervals are within normal range. Old EKG for comparison is not available at this time. Discharge - Discharge Clinical Impression: Vomiting and diarrhea Abdominal pain Qualifiers: Abdominal location: epigastric Qualified Code(s): R10.13 - Epigastric pain Condition: Good Disposition: HOME, SELF-CARE Additional Instructions: Your laboratory evaluation did not show any concerning findings. I suspect the pain in your upper abdomen going into your chest is related to gastritis and esophagitis from vomiting. I have prescribed you Pepcid. You can also buy Pepcid [id number]. You can take the prescription to the pharmacist and ask them if you would be cheaper with your insurance or if it is cheaper for you just to get it [id number]. I prescribed her Zofran and Phenergan. These are both nausea medicines. It is important to keep your nausea and vomiting under control so you can stay well-hydrated. Please have a low threshold to return to the ER if you have intractable vomiting, worsening pain, fevers, any blood in your emesis, or any blood in your stool. Please follow-up with your doctor or you can return to the ER for reevaluation in 2 to 3 days if you are still having any symptoms. Prescriptions: Famotidine [Pepcid 40 mg Tablet] 40 mg PO DAILY #20 tablet Ondansetron [Zofran Odt 4 mg Tablet] 1 tab PO Q4H PRN #15 tab.rapdis PRN Reason: For Nausea/Vomiting Promethazine HCl [Phenergan 25 mg Tablet] 25 mg PO Q6 PRN #14 tablet PRN Reason: vomiting Forms: Return to Work
[2019-04-02] MEDS ORDERED: ONDANSETRON ODT 4 MG TAB (6 TAB/ER DISP) PO PRN (23:57)
[2019-04-03 00:25] VITALS: BP 103/64
== END 2019-04-03 00:25 | disposition home or self-care (01) ==
LOC: ER 19:11
DX: R10.13 Epigastric pain (principal); R11.2 Nausea with vomiting, unspecified; R07.89 Other chest pain; M54.9 Dorsalgia, unspecified; Z90.49 Acquired absence of other specified parts of digestive tract; Z87.442 Personal history of urinary calculi
CPT/HCPCS: 93005; 96376; 99284; 96361; 96374; 36415; 83690; 84703; 85025; 80053; 81001; 71046; 93010; J3490; J2405; J7030; J7040

== ENCOUNTER 2019-04-22 14:45 | Emergency (ER) | payer OTHER ==
--- NOTE | 2019-04-22 16:44 | ER Document Report ---
ED Medical Screen (RME) - General Chief Complaint: Abdominal Pain Stated Complaint: ABDOMINAL PAIN/FLANK PAIN Time Seen by Provider: 04/22/19 16:40 Mode of Arrival: Ambulatory Information source: Patient Notes: 23-year-old female presents to ED for complaint of right flank pain. She does have a history of a kidney stone in the past. She states she also has abnormal vaginal discharge. She states she does have an IUD. Patient is alert oriented respirations regular and unlabored speaking in full sentences. I have greeted and performed a rapid initial assessment of this patient. A co mprehensive ED assessment and evaluation of the patient, analysis of test results and completion of medical decision making process will be conducted by an additional ED providers. Dictation of this chart was performed using voice recognition software; therefore, there may be some unintended grammatical errors. TRAVEL OUTSIDE OF THE [place] IN LAST 30 DAYS: No - Related Data Allergies/Adverse Reactions: No Known Drug Allergies Allergy (Verified 04/22/19 14:48) Past Medical History Renal/ Medical History: Reports: Hx Kidney Stones - left. Denies: Hx Peritoneal Dialysis Psychiatric Medical History: Reports: Hx Depression Past Surgical History: Reports: Hx Cholecystectomy, Hx Kidney (Renal Surgery) - 2x ureteral stents after stone basket retrieval, Hx Umbilical Hernia Physical Exam - Vital signs Vitals: Temp Pulse Resp BP Pulse Ox 98.3 F 111 H 21 H 124/78 98 04/22/19 15:23 04/22/19 15:23 04/22/19 15:23 04/22/19 15:23 04/22/19 15:23 Course - Vital Signs Vital signs: Temp Pulse Resp BP Pulse Ox 98.3 F 111 H 21 H 124/78 98 04/22/19 15:23 04/22/19 15:23 04/22/19 15:23 04/22/19 15:23 04/22/19 15:23
[2019-04-22] MEDS ORDERED: KETOROLAC TROMETHAMINE INJ/PF 30 MG/1 ML SDV IV ONE (16:45)
[2019-04-22] MEDS ORDERED: NORMAL SALINE 1000 ML 1,000 ML IV ONE (16:45)
[2019-04-22] MEDS ORDERED: ONDANSETRON HCL INJ/PF 4 MG/2 ML SDV IV ONE (16:45)
[2019-04-22 17:35] LABS: APPEARANCE,URINE SLIGHTLY-CLOUDY; BILIRUBIN,URINE NEGATIVE (NEGATIVE); COLOR,URINE YELLOW; GLUCOSE, URINE NEGATIVE (NEGATIVE); KETONES,URINE NEGATIVE (NEGATIVE); LEUKOCYTE ESTERASE,URINE SMALL (NEGATIVE); NITRITE,URINE NEGATIVE (NEGATIVE); PROTEIN,URINE NEGATIVE (NEGATIVE); URINE SPECIFIC GRAVITY 1.008; UROBILINOGEN,URINE NEGATIVE mg/dL (<2.0)
[2019-04-22 17:44] LABS: ABSOLUTE EOSINOPHILS # (AUTO) 0.1 10^3/uL (0.0-0.6); ABSOLUTE LYMPHOCYTES (AUTO) 1.3 10^3/uL (0.5-4.7); ABSOLUTE MONOCYTES (AUTO) 0.5 10^3/uL (0.1-1.4); ABSOLUTE NEUT (AUTO) 3.7 10^3/uL (1.7-8.2); BASOPHILS % (AUTO) 0.6 % (0-2); EOSINOPHILS % (AUTO) 1.4 % (0-6); HEMATOCRIT 38.4 % (36.0-47.0); LYMPHOCYTES % (AUTO) 23.7 % (13-45); MEAN CORPUSCULAR HEMOGLOBIN 30.2 pg (27.0-33.4); MEAN CORPUSCULAR VOLUME 89 fl (80-97); MONOCYTES % (AUTO) 8.4 % (3-13); PLATELET COUNT 257 10^3/uL (150-450); RED BLOOD COUNT 4.32 10^6/uL (3.72-5.28); RED CELL DISTRIBUTION WIDTH 13.4 % (11.5-14.0); SEGMENTED NEUTROPHILS % (AUTO) 65.9 % (42-78); TOTAL CELLS COUNTED % (AUTO) 100 %; WHITE BLOOD COUNT 5.7 10^3/uL (4.0-10.5)
--- NOTE | 2019-04-22 18:06 | RADIOLOGY REPORT (SQ) ---
EXAM DESCRIPTION: CT ABD/PELVIS NO ORAL OR IV COMPLETED DATE/TIME: 04/22/2019 5:55 pm REASON FOR STUDY: Right flank pain wait for negative hCG COMPARISON: None. TECHNIQUE: CT scan of the abdomen and pelvis performed without intravenous or oral contrast. Images reviewed with lung, soft tissue, and bone windows. Reconstructed coronal and sagittal MPR images revi ewed. All images stored on PACS. All CT scanners at this facility use dose modulation, iterative reconstruction, and/or weight based d osing when appropriate to reduce radiation dose to as low as reasonably achievable (ALARA). [facility]: Dose Right [facility]: CareDose [facility]: Dose Right [facility]: Teradose 4D [facility]: Smart Zelnas RADIATION DOSE: CT Rad equipment meets quality standard of care and radiation dose reduction techniq ues were employed. CTDIvol: 9.8 mGy. DLP: 550 mGy-cm.mGy. LIMITATIONS: None. FINDINGS: LOWER CHEST: No significant findings. No nodules or infiltrates. NON-CONTRASTED LIVER, SPLEEN, ADRENALS: Evaluation limited by lack of IV contrast. No identified sign ificant masses. PANCREAS: No masses. No peripancreatic inflammatory changes. GALLBLADDER: Surgically absent. RIGHT KIDNEY AND URETER: No cysts identified. No solid masses. No calcified stones. No hydronephrosis or hydroureter. LEFT KIDNEY AND URETER: No cysts identified. No solid masses. No calcified stones. No hydronephrosis or hydroureter. AORTA AND RETROPERITONEUM: No aneurysm. No retroperitoneal masses or adenopathy. BOWEL AND PERITONEAL CAVITY: No obvious masses or inflammatory changes. No free fluid. APPENDIX: Normal. PELVIS, BLADDER, AND ABDOMINAL WALL:IUD present in the uterus. No free fluid. Unremarkable bladder. BONES: No acute findings. OTHER: No other significant finding. IMPRESSION: NO ACUTE FINDINGS. TECHNICAL DOCUMENTATION: JOB ID: [id number] Quality ID # [id number]: Final reports with documentation of one or more dose reduction techniques (e.g., Au tomated exposure control, adjustment of the mA and/or kV according to patient size, use of iterative reconstruction technique) 2010 [employer]- All Rights Reserved Reading location - IP/workstation name: [email or web address]
[2019-04-22 18:08] LABS: ALANINE AMINOTRANSFERASE 28 U/L (9-52); ALBUMIN 4.9 g/dL (3.5-5.0); ALKALINE PHOSPHATASE 73 U/L (38-126); ANION GAP 12 (5-19); ASPARTATE AMINO TRANSFERASE 24 U/L (14-36); BILIRUBIN,DIRECT 0.2 mg/dL (0.0-0.4); BILIRUBIN,TOTAL 0.3 mg/dL (0.2-1.3); BLOOD UREA NITROGEN 9 mg/dL (7-20); CALCIUM 9.8 mg/dL (8.4-10.2); CARBON DIOXIDE 26 mmol/L (22-30); CHLORIDE 104 mmol/L (98-107); GLUCOSE 88 mg/dL (75-110); POTASSIUM 4.8 mmol/L (3.6-5.0); SODIUM 141.9 mmol/L (137-145); TOTAL PROTEIN 8.3 g/dL (6.3-8.2)
[2019-04-22 21:30] VITALS: BP 115/78
== END 2019-04-22 23:40 | disposition left against medical advice (07) ==
LOC: ER 14:45
DX: Z53.21 Procedure and treatment not carried out due to patient leaving prior to being seen by health care provider (principal); R10.9 Unspecified abdominal pain
CPT/HCPCS: 36415; 74176; 80053; 81001; 81025; 85025; 99281

== ENCOUNTER 2019-05-01 15:22 | Emergency (ER) | payer OTHER ==
[2019-05-01 16:36] VITALS: BP 112/67
[2019-05-01] MEDS ORDERED: ONDANSETRON 4 MG TAB.RAPDIS PO ONE (17:17)
--- NOTE | 2019-05-01 17:21 | ER Document Report ---
ED Medical Screen (RME) - General Chief Complaint: Chest Pain Stated Complaint: CHEST PAIN Time Seen by Provider: 05/01/19 17:12 Mode of Arrival: Ambulatory Information source: Patient Notes: 23-year-old female presented to ED for abdominal pain. She states she was seen in the emergency room a week ago on Monday for the same pain around the umbilicus into the lower abdomen. She states today she also has some chest pain. She denies any fevers. She states today she also has some dizziness and lightheadedness. She states she has vomited 3 times today and had multiple diarrhea stools. She states she has a history of kidney stones umbilical hernia repair gallbladder removal. She states she lives with her family does not smoke drink or do any drugs. We will replete the blood and urine and get a chest x- ray for chest pain. I reviewed all of the labs and CT of the abdomen pelvis with patient and they were all of no concerning results. I have greeted and performed a rapid initial assessment of this patient. A comprehensive ED assessment and evaluation of the patient, analysis of test results and completion of medical decision making process will be conducted by an additional ED providers. Dictation of this chart was performed using voice recognition software; therefore, there may be some unintended grammatical errors. TRAVEL OUTSIDE OF THE [place] IN LAST 30 DAYS: No - Related Data Allergies/Adverse Reactions: No Known Drug Allergies Allergy (Verified 05/01/19 17:08) Past Medical History Renal/ Medical History: Reports: Hx Kidney Stones - left. Denies: Hx Peritoneal Dialysis Psychiatric Medical History: Reports: Hx Depression Past Surgical History: Reports: Hx Cholecystectomy, Hx Kidney (Renal Surgery) - 2x ureteral stents after stone basket retrieval, Hx Umbilical Hernia Physical Exam - Vital signs Vitals: Temp Pulse Resp BP Pulse Ox 98.7 F 92 16 112/67 98 05/01/19 16:34 05/01/19 16:34 05/01/19 16:34 05/01/19 16:34 05/01/19 16:34 Course - Vital Signs Vital signs: Temp Pulse Resp BP Pulse Ox 98.7 F 92 16 112/67 98 05/01/19 16:34 05/01/19 16:34 05/01/19 16:34 05/01/19 16:34 05/01/19 16:34
--- NOTE | 2019-05-01 18:05 | RADIOLOGY REPORT (SQ) ---
EXAM DESCRIPTION: CHEST 2 VIEWS COMPLETED DATE/TIME: 05/01/2019 5:36 pm REASON FOR STUDY: chest pain COMPARISON: 04/02/2019 EXAM PARAMETERS: NUMBER OF VIEWS: two views TECHNIQUE: Digital Frontal and Lateral radiographic views of the chest acquired. RADIATION DOSE: NA LIMITATIONS: none FINDINGS: LUNGS AND PLEURA: No opacities, masses or pneumothorax. No pleural effusion. MEDIASTINUM AND HILAR STRUCTURES: No masses or contour abnormalities. HEART AND VASCULAR STRUCTURES: Heart normal size. No evidence for failure. BONES: No acute findings. HARDWARE: None in the chest. OTHER: No other significant finding. IMPRESSION: NO ACUTE RADIOGRAPHIC FINDING IN THE CHEST. TECHNICAL DOCUMENTATION: JOB ID: [id number] [employer]- All Rights Reserved Reading location - IP/workstation name: [email or web address]
[2019-05-01 18:16] LABS: APPEARANCE,URINE SLIGHTLY-CLOUDY; BILIRUBIN,URINE NEGATIVE (NEGATIVE); COLOR,URINE YELLOW; GLUCOSE, URINE NEGATIVE (NEGATIVE); KETONES,URINE NEGATIVE (NEGATIVE); LEUKOCYTE ESTERASE,URINE SMALL (NEGATIVE); NITRITE,URINE NEGATIVE (NEGATIVE); PROTEIN,URINE NEGATIVE (NEGATIVE); UROBILINOGEN,URINE NEGATIVE mg/dL (<2.0)
[2019-05-01 18:17] LABS: ABSOLUTE LYMPHOCYTES (AUTO) 1.3 10^3/uL (0.5-4.7); ABSOLUTE MONOCYTES (AUTO) 0.4 10^3/uL (0.1-1.4); ABSOLUTE NEUT (AUTO) 3.1 10^3/uL (1.7-8.2); BASOPHILS % (AUTO) 0.5 % (0-2); HEMATOCRIT 39.3 % (36.0-47.0); HEMOGLOBIN 13.2 g/dL (12.0-15.5); LYMPHOCYTES % (AUTO) 26.5 % (13-45); MEAN CORPUSCULAR HGB CONC 33.6 g/dL (32.0-36.0); MEAN CORPUSCULAR VOLUME 89 fl (80-97); MONOCYTES % (AUTO) 7.7 % (3-13); PLATELET COUNT 224 10^3/uL (150-450); RED BLOOD COUNT 4.39 10^6/uL (3.72-5.28); RED CELL DISTRIBUTION WIDTH 13.8 % (11.5-14.0); SEGMENTED NEUTROPHILS % (AUTO) 64.3 % (42-78); TOTAL CELLS COUNTED % (AUTO) 100 %; WHITE BLOOD COUNT 4.8 10^3/uL (4.0-10.5)
--- NOTE | 2019-05-01 18:28 | RADIOLOGY REPORT (SQ) ---
EXAM DESCRIPTION: U/S NON-OB PELVIS TV W/O DOP COMPLETED DATE/TIME: 05/01/2019 5:57 pm REASON FOR STUDY: Lower abdominal and pelvic pain COMPARISON: None. TECHNIQUE: Dynamic and static grayscale images acquired of the pelvis via transvaginal approach and recorded on PACS. Additional selected color Doppler and spectral images recorded. LIMITATIONS: None. FINDINGS: UTERUS: Contour normal. No mass. ENDOMETRIAL STRIPE: An IUD is present. CERVIX: 1.8 cm. No nabothian cysts. RIGHT OVARY AND DOPPLER: Normal size. No worrisome masses. Normal arterial vascular flow without evid ence for torsion. LEFT OVARY AND DOPPLER: Normal size. No worrisome masses. Normal arterial vascular flow without evide nce for torsion. FREE FLUID: None noted. OTHER: No other significant finding. MEASUREMENTS: UTERUS: 6.6 x 4.4 x 2.7 cm. ENDOMETRIAL STRIPE: 2 mm. RIGHT OVARY: 1.8 x 1.7 x 2.8 cm. LEFT OVARY: 2.8 x 1.5 x 2.2 cm. IMPRESSION: NORMAL TRANSVAGINAL PELVIC ULTRASOUND. TECHNICAL DOCUMENTATION: JOB ID: [id number]- All Rights Reserved Rev-02/23 Reading location - IP/workstation name: [email or web address]
[2019-05-01 18:36] LABS: ALANINE AMINOTRANSFERASE 45 U/L (9-52); ALKALINE PHOSPHATASE 69 U/L (38-126); ANION GAP 12 (5-19); ASPARTATE AMINO TRANSFERASE 49 U/L (14-36); BILIRUBIN,DIRECT 0.1 mg/dL (0.0-0.4); BILIRUBIN,TOTAL 0.3 mg/dL (0.2-1.3); BLOOD UREA NITROGEN 13 mg/dL (7-20); CALCIUM 9.9 mg/dL (8.4-10.2); CARBON DIOXIDE 27 mmol/L (22-30); CHLORIDE 102 mmol/L (98-107); CREATINE KINASE 848 U/L (30-135); GLUCOSE 92 mg/dL (75-110); POTASSIUM 4.8 mmol/L (3.6-5.0); TOTAL PROTEIN 8.2 g/dL (6.3-8.2)
[2019-05-01 18:48] LABS: CREATINE KINASE MB 0.23 ng/mL (<4.55)
[2019-05-01 18:53] LABS: TROPONIN I < 0.012 ng/mL
--- NOTE | 2019-05-01 23:58 | EKG REPORT ---
SEVERITY:- NORMAL ECG - SINUS RHYTHM : Confirmed by: Colin Vargas 01-May-2019 23:58:03
== END 2019-05-01 20:05 | disposition left against medical advice (07) ==
LOC: ER 15:22
DX: R10.33 Periumbilical pain (principal); R10.30 Lower abdominal pain, unspecified; R07.9 Chest pain, unspecified; R42 Dizziness and giddiness; R11.10 Vomiting, unspecified; R19.7 Diarrhea, unspecified; Z87.442 Personal history of urinary calculi; Z90.49 Acquired absence of other specified parts of digestive tract; Z53.20 Procedure and treatment not carried out because of patient's decision for unspecified reasons
CPT/HCPCS: 93005; 99281; 36415; 87086; 82553; 82550; 85025; 80053; 81001; 84484; 71046; 76830; 93010; S0119